=== PATIENT | male | born 1980 | race Caucasian/White ===

== ENCOUNTER 2025-07-21 10:01 | Emergency (ER) | payer OTHER ==
[~2025-07-21] VITALS: Ht 172.7 cm; Wt 105.0 kg
[2025-07-21 10:13] VITALS: TEMP 98.7
[2025-07-21] MEDS: SODIUM CHLORIDE 0.9% 1,000 ML IV ONE (10:25)
[2025-07-21 10:39] LABS: PLATELET COUNT (AUTO) 279 K/uL (150-450); RED BLOOD CELL COUNT(AUTO) 5.10 MIL/uL (4.50-5.90); RED CELL DISTRIBUTION WIDTH 12.0 % (11.5-14.5); WHITE BLOOD COUNT (AUTO) 8.0 K/uL (4.5-11.0)
[2025-07-21 10:45] LABS: CALCIUM, TOTAL 9.2 mg/dL (8.8-10.5); CREATININE 0.80 mg/dL (0.60-1.30); GLOMERULAR FILTR. RATE CALC > 60 mL/min (>60); GLUCOSE,RANDOM 96 mg/dL (70-110); SODIUM SERUM 136 mmol/L (136-145); UREA NITROGEN, BLOOD 14 mg/dL (7-18)
[2025-07-21 11:19] VITALS: BP 136/87; PULSE 88; RESP 16; O2SAT 99
== END 2025-07-21 11:45 | disposition home or self-care (01) ==
LOC: EMS 10:01
DX: R00.0 Tachycardia, unspecified (principal); J44.89 Other specified chronic obstructive pulmonary disease; F17.210 Nicotine dependence, cigarettes, uncomplicated; F14.90 Cocaine use, unspecified, uncomplicated; F12.90 Cannabis use, unspecified, uncomplicated; F15.90 Other stimulant use, unspecified, uncomplicated; Z91.030 Bee allergy status
CPT/HCPCS: 99283; 80048; 85025; 36415; G0480